=== PATIENT | male | born 1995 | race Caucasian/White ===

== ENCOUNTER 2022-11-15 13:39 | Emergency (ER) | payer BC, OTHER ==
[~2022-11-15] VITALS: Ht 177.8 cm; Wt 90.7 kg
[2022-11-15 14:27] VITALS: BP 163/84; PULSE 74; RESP 17; TEMP 97.9; O2SAT 98
[2022-11-15] MEDS ORDERED: OFLOS LEFT EYE (16:57)
[2022-11-15 17:06] VITALS: BP 163/84; PULSE 74; RESP 17; TEMP 97.9; O2SAT 98
== END 2022-11-15 17:06 | disposition home or self-care (01) ==
LOC: MED 13:39
DX: S02.32XA Fracture of orbital floor, left side, initial encounter for closed fracture (principal); X58.XXXA Exposure to other specified factors, initial encounter; Y93.89 Activity, other specified; Y92.89 Other specified places as the place of occurrence of the external cause; Y99.8 Other external cause status
CPT/HCPCS: 70480; 99284